=== PATIENT | male | born 1980 | race Caucasian/White ===

== ENCOUNTER → 2020-09-24 14:40 | Outpatient (CLI) | payer OTHER, SELFPAY ==
--- NOTE | 2020-09-24 14:57 | XR_ITS ---
PROCEDURE: XR KNEE RT 3V CLINICAL INDICATION: RT KNEE PAIN COMPARISON: No exams were available for comparison FINDINGS: No fracture or dislocation. No lytic or blastic change. There is normal mineralization. There are minimal osteoarthritic changes at the medial compartment and patellofemoral joint with small suprapatellar effusion. Other findings:None. IMPRESSION: Minimal osteoarthritis with small suprapatellar effusion Dictated by: Nehemias Morel MD 09/24/2020 16:02 Nehemias Morel MD in [place] 09/24/2020 16:02
== END ==
PROVIDERS: PCP Family Medicine; Visit Provider Family Medicine
DX: M25.561 Pain in right knee (principal)
CPT/HCPCS: 73562

== ENCOUNTER 2020-09-30 16:41 | Outpatient (RCR) | payer OTHER, SELFPAY | END 2020-09-30 16:45 | disposition home or self-care (01) | LOC: PT 16:41 | PROVIDERS: PCP Family Medicine; Visit Provider Family Medicine | DX: M25.561 Pain in right knee (principal) | CPT/HCPCS: 97163 ==

== ENCOUNTER 2022-09-04 08:00 | Outpatient (RCR) | payer OTHER, SELFPAY | END 2022-09-04 08:05 | disposition home or self-care (01) | LOC: OT 08:00 | PROVIDERS: Visit Provider Orthopaedic Surgery | DX: S46.011A Strain of muscle(s) and tendon(s) of the rotator cuff of right shoulder, initial encounter (principal); M75.101 Unspecified rotator cuff tear or rupture of right shoulder, not specified as traumatic | CPT/HCPCS: 97010; 97014; 97110; 97140; 97164; 97166; G0283 ==

== ENCOUNTER 2022-11-08 16:30 | Emergency (ER) | payer OTHER, SELFPAY ==
[2022-11-08 16:41] VITALS: BP 0/0; BP 151/98; PULSE 64; RESP 15; TEMP 36.5; O2SAT 99; BMI 36.7
--- NOTE | 2022-11-08 17:11 | HMH.EDGENADL ---
Discharge Plan Disposition Patient Disposition: Home, Self-Care Condition: Good Prescriptions Prescriptions: New cyclobenzaprine 10 mg tablet 10 mg PO TID Qty: 20 0RF Referrals Follow up/Referrals: Rosa Olivarez APRN [Primary Care Provider] - See instructions Activity Restrictions/Add. Instructions Additional Instructions/Restrictions: Try applying heat 20 minutes 4 times a day. Flexeril as prescribed, muscle relaxer. Continue ibuprofen. Call your orthopedic physician tomorrow to arrange further care Clinical Impressions Clinical Impression: Muscle spasm Instructions Patient Instructions: DI for Muscle Spasm Discharge ED Provider: [facility] General Adult HPI General Chief complaint: Extremity Injury, Upper Stated complaint: RT shoulder and neck Time Seen by Provider: 11/08/22 17:00 Mode of Arrival: Ambulatory Source of Information: Patient Limitations: No Limitations Description of Symptoms (Recalled from ER Triage Doc. by RN): Pt c/o right trapezious muscle knot for one week in setting of PT rehab w iso curls after rotator cuff repair 06/2022, NAD History of Present Illness HPI narrative: Patient states that he had rotator cuff surgery on his right shoulder in June. He has been undergoing physical therapy for rehab. For the past week he has had spasms in his right trapezius muscle. He says that the physical therapist was going to refer him for acupuncture. Physical therapist did massage today. He has tried ibuprofen and ice. He has previously been on muscle relaxers back after he had surgery. He says that they made him tired and drowsy, but did seem to help he is not sure what muscle relaxer he was on. He has had numbness of his right middle and ring finger ever since his surgery, which is unchanged. He does not have any radiation of the pain down his arm. He does have radiation of the pain up into the right side of his neck. No weakness. Related Data Previous Rx's Medication Instructions Recorded cyclobenzaprine 10 mg tablet 10 mg PO TID #20 tabs 11/08/22 Allergies Allergy/AdvReac Type Severity Reaction Status Date / Time No Known Allergies Allergy Verified 09/19/19 16:43 [facility] Disclaimer: The information contained in this section may have been updated after the patient was seen, as this information can be updated by other users. Social History Smoking Status: Never smoker alcohol intake: current current occupational status: employed Travel in the last 8 weeks: None ROS Obtained: Yes Systems reviewed as appropriate & no additional complaints except as documented Constitutional Constitutional: Denies weakness ENT Ears, Nose, Mouth, and Throat: Reports neck pain Musculoskeletal Musculoskeletal: Reports as per HPI, Reports neck pain and Reports numbness (Right ring and middle finger, since surgery) Neurologic Neurologic: Reports numbness (Right ring and middle finger, since surgery) and Denies weakness Physical Exam General General appearance: alert and in no apparent distress Neck Neck exam: Present full ROM; Absent tenderness Chest Chest inspection: Present normal inspection and symmetric chest wall rise Respiratory Respiratory exam: Absent respiratory distress Cardiovascular Cardiovascular exam: Present regular rate Extremities Exam Extremities exam: Present tenderness (Tenderness and spasm right trapezius muscle.) and other (Normal peripheral pulses. Normal warmth, capillary refill, muscular strength.) Neurological Exam Neurological exam: Present alert and oriented X3 Psychiatric Psychiatric exam: Present normal affect and normal mood Skin Skin exam: Present warm and dry Medical Decision Making Fred Inquiry Pt receiving controlled substance: No Vital Signs: 11/08/22 16:41 Temperature 97.7 F Temperature Source Oral Pulse Rate [Left Radial] 64 Respiratory Rate 15 Blood Pressure [Left Arm] 151/98 H Blood Pressure [Right A
[2022-11-08 18:00] VITALS: BP 161/101; PULSE 61; RESP 18; TEMP 36.5; O2SAT 100
== END 2022-11-08 18:01 | disposition home or self-care (01) ==
PROVIDERS: Emergency Provider Emergency Medicine; PCP Nurse Practitioner Family
DX: M62.838 Other muscle spasm (principal); M54.2 Cervicalgia; M25.511 Pain in right shoulder
CPT/HCPCS: 96360; 99284

== ENCOUNTER → 2023-03-02 11:41 | Outpatient (CLI) | payer OTHER, SELFPAY ==
[2023-03-02 18:28] LABS: Basophils % 0.5 % (0.1-2.0); Eosinophils # 0.1 K/mm3 (0.0-0.4); Eosinophils % 1.8 % (0.1-12.0); Hematocrit 44.6 % (42.0-52.0); Hemoglobin 14.6 g/dL (14.1-18.0); Lymphocytes # 2.2 K/mm3 (0.7-4.5); Mean Corpuscular HGB Conc 32.7 g/dL (31.8-35.4); Mean Corpuscular Hemoglobin 28.1 pg (27.0-31.2); Mean Corpuscular Volume 85.9 fl (80-94); Mean Platelet Volume 8.5 fl (7.4-10.4); Monocytes # 0.3 K/mm3 (0.1-1.0); Monocytes % 3.7 % (1.7-9.3); Neutrophils # 4.8 K/mm3 (1.8-7.8); Neutrophils % 64.9 % (37.0-80.0); Platelet Count 318 K/mm3 (142-424); Red Blood Count 5.19 M/mm3 (4.60-6.20); Red Cell Distribution Width 13.6 % (11.5-17.5); White Blood Count 7.4 K/mm3 (4.8-10.8)
[2023-03-02 18:57] LABS: Alanine Aminotransferase 28 U/L (12-78); Albumin Level 4.7 g/dl (3.5-5.0); Albumin/Globulin Ratio 1.7 (1.1-1.8); Alkaline Phosphatase 78 U/L (38-126); Anion Gap 14.4 mEq/L (5-15); Aspartate Amino Transferase 26 U/L (17-59); Bilirubin,Total 1.8 mg/dl (0.2-1.3); Blood Urea Nitrogen 20 mg/dl (9-20); Calcium 9.1 mg/dl (8.4-10.2); Carbon Dioxide 24 mmol/L (22.0-30.0); Chloride 106 mmol/L (98-107); Chol/HDL Ratio 4.7 (1-3.5); Cholesterol 230 mg/dl (140-200); Estimated Glomerular Filt Rate 81 ml/min (>60); GFR (African American) 98 ML/MIN (>60); Globulin 2.7 g/dL (1.3-3.2); Glucose 102 mg/dl (74-100); HDL Cholesterol 49 mg/dl (40-60); Potassium 4.4 mmoL/L (3.5-5.1); Sodium 140 mmol/L (136-145); Total Protein,Serum 7.4 g/dl (6.3-8.2); Triglycerides 163 mg/dl (30-150); VLDL Cholesterol 33 mg/dL (0-40)
[2023-03-02 19:00] LABS: Hemoglobin A1C 5.7 % (4.0-6.0)
[2023-03-02 19:08] LABS: Direct LDL Cholesterol 141.03 mg/dL (100-129)
[2023-03-02 19:11] LABS: 25-OH Vitamin D, Total 20.8 ng/mL (30-100)
[2023-03-02 19:26] LABS: Prostate Specific Ag Screen 1.4 ng/ml (0.0-4.0); Thyroid Stimulating Hormone 1.11 uIU/mL (0.465-4.68)
== END ==
LOC: LAB 03-03 08:38
PROVIDERS: PCP Student in an Organized Health Care Education/Training Program; Visit Provider Student in an Organized Health Care Education/Training Program
DX: M62.838 Other muscle spasm (principal); E55.9 Vitamin D deficiency, unspecified; Z13.1 Encounter for screening for diabetes mellitus; Z13.220 Encounter for screening for lipoid disorders; Z13.29 Encounter for screening for other suspected endocrine disorder; Z12.5 Encounter for screening for malignant neoplasm of prostate
CPT/HCPCS: 80053; 80061; 82306; 83036; 84443; 85025; G0103

== ENCOUNTER 2023-05-25 12:48 | Emergency (ER) | payer OTHER, SELFPAY ==
[2023-05-25 14:00] VITALS: BP 148/76; PULSE 68; RESP 18; TEMP 37; O2SAT 99; BMI 34.7
--- NOTE | 2023-05-25 14:28 | EXP.UTC ---
Discharge Plan Disposition Patient Disposition: Home, Self-Care Condition: Good Referrals Follow up/Referrals: Giulia Rios PA [Primary Care Provider] - See instructions Activity Restrictions/Add. Instructions Additional Instructions/Restrictions: Follow up with your Family Doctor next week as discussed They will be calling you to schedule your Abdominal Ultrasound Return if needed Straight to ER if any life threatening symptoms Clinical Impressions Clinical Impression: Abdominal discomfort Stand Alone Forms Stand Alone Forms: Work/School Release Discharge ED Provider: Monserrat Andino [facility] [place] HPI General Stated complaint: Large painful lump center of abd Mode of Arrival: Ambulatory Source of Information: Patient Limitations: No Limitations Time Seen by Provider: 05/25/23 14:28 Description of Symptoms (Recalled from Triage Doc. by RN): PATIENT C/O KNOT TO UPPER STOMACH AREA AND DECREASED APPETITE X 1 MONTH HEENT Symptoms (Recalled from RN notes): No Resp Symptoms (Recalled from RN notes): No Skin Symptoms (Recalled from RN notes): No MS Symptoms (Recalled from RN notes): No Functional Status (Recalled from RN notes): WNL History of Present Illness Provider Complaint: Patient states that he noticed about a month ago he noticed an area in his mid upper stomach down to his naval area that when he raises up from laying position raises up in his stomach, Denies any pain at this time but does states that he has pain at times with heavy lifting and packing heavy objects States that today he was just worried about it and wanted to get in and get it looked at Denies any pain at this time Related Data Allergies Allergy/AdvReac Type Severity Reaction Status Date / Time No Known Allergies Allergy Verified 03/30/23 09:28 Worker's Comp Is this a Worker's Comp case?: No [facility] Disclaimer: The information contained in this section may have been updated after the patient was seen, as this information can be updated by other users. Social History Smoking Status: Never smoker alcohol intake: current current occupational status: employed Travel in the last 8 weeks: None ROS Obtained: Yes All systems reviewed & no additional complaints except as documented and Yes Systems reviewed as appropriate & no additional complaints except as documented Constitutional Constitutional: Reports system reviewed and no additional complaints, except as documented, Reports as per HPI and Denies fever(s) ENT Ears, Nose, Mouth, and Throat: Reports system reviewed and no additional complaints, except as documented, Reports as per HPI and Denies dysphagia Cardiovascular Cardiovascular: Reports system reviewed and no additional complaints, except as documented and Reports as per HPI Respiratory Respiratory: Reports system reviewed and no additional complaints, except as documented and Reports as per HPI Gastrointestinal Gastrointestingal: Reports system reviewed and no additional complaints, except as documented and as per HPI; Denies abdominal pain, bloating, dyspepsia, dysphagia, heartburn, hematemesis, hematochezia, loose stools, melena, reflux or vomiting Musculoskeletal Musculoskeletal: Reports system reviewed and no additional complaints, except as documented and Reports as per HPI Physical Exam General General appearance: alert and in no apparent distress ENT ENT exam: Present mucous membranes moist Respiratory Respiratory exam: Present normal lung sounds bilaterally; Absent respiratory distress or wheezes Cardiovascular Cardiovascular exam: Present regular rate, normal rhythm and normal heart sounds Abdominal Exam Abdominal exam: Present soft and normal bowel sounds; Absent distention or tenderness Comment: no hard areas palpated denies pain at this time Neurological Exam Neurological exam: Present alert, oriented X3 and normal gait Medical Decision Making Fred Inquiry Pt rec
[2023-05-25 14:49] VITALS: BP 148/76; PULSE 68; RESP 18; TEMP 37; O2SAT 99
== END 2023-05-25 14:56 | disposition home or self-care (01) ==
PROVIDERS: Emergency Provider Nurse Practitioner; PCP Student in an Organized Health Care Education/Training Program
DX: R10.33 Periumbilical pain (principal)
CPT/HCPCS: 99204; 99212; G0463

== ENCOUNTER → 2023-05-28 23:27 | Outpatient (CLI) | payer OTHER, SELFPAY ==
[2023-05-28 19:33] LABS: Basophils # 0.1 K/mm3 (0-0.2); Basophils % 0.7 % (0.1-2.0); Eosinophils # 0.2 K/mm3 (0.0-0.4); Eosinophils % 2.4 % (0.1-12.0); Hematocrit 44.3 % (42.0-52.0); Hemoglobin 14.9 g/dL (14.1-18.0); Lymphocytes # 2.5 K/mm3 (0.7-4.5); Lymphocytes % 32.7 % (10-50); Mean Corpuscular HGB Conc 33.6 g/dL (31.8-35.4); Mean Corpuscular Hemoglobin 28.8 pg (27.0-31.2); Mean Corpuscular Volume 85.6 fl (80-94); Mean Platelet Volume 7.5 fl (7.4-10.4); Monocytes # 0.4 K/mm3 (0.1-1.0); Monocytes % 4.9 % (1.7-9.3); Neutrophils # 4.5 K/mm3 (1.8-7.8); Neutrophils % 59.3 % (37.0-80.0); Platelet Count 304 K/mm3 (142-424); Red Blood Count 5.17 M/mm3 (4.60-6.20); Red Cell Distribution Width 13.4 % (11.5-17.5); White Blood Count 7.5 K/mm3 (4.8-10.8)
[2023-05-28 19:38] LABS: Alanine Aminotransferase 34 U/L (12-78); Albumin Level 4.5 g/dl (3.5-5.0); Albumin/Globulin Ratio 1.6 (1.1-1.8); Alkaline Phosphatase 61 U/L (38-126); Amylase 61 U/L (30-110); Anion Gap 14.1 mEq/L (5-15); Aspartate Amino Transferase 31 U/L (17-59); Bilirubin,Total 1.4 mg/dl (0.2-1.3); Blood Urea Nitrogen 13 mg/dl (9-20); Calcium 9.6 mg/dl (8.4-10.2); Carbon Dioxide 28 mmol/L (22.0-30.0); Chloride 102 mmol/L (98-107); Cholesterol 216 mg/dl (140-200); Estimated Glomerular Filt Rate 92 ml/min (>60); GFR (African American) 111 ML/MIN (>60); Globulin 2.9 g/dL (1.3-3.2); Glucose 107 mg/dl (74-100); HDL Cholesterol 36 mg/dl (40-60); Lipase 78 U/L (23-300); Potassium 4.1 mmoL/L (3.5-5.1); Sodium 140 mmol/L (136-145); Total Protein,Serum 7.4 g/dl (6.3-8.2)
[2023-05-28 19:39] LABS: Triglycerides 466 mg/dl (30-150)
[2023-05-28 19:51] LABS: Direct LDL Cholesterol 118.72 mg/dL (100-129)
[2023-05-28 20:01] LABS: Hemoglobin A1C 5.6 % (4.0-6.0)
== END ==
LOC: LAB.DROPOF 23:27
PROVIDERS: PCP Student in an Organized Health Care Education/Training Program; Visit Provider Student in an Organized Health Care Education/Training Program
DX: R10.9 Unspecified abdominal pain (principal); E55.9 Vitamin D deficiency, unspecified; E66.9 Obesity, unspecified; Z68.36 Body mass index [BMI] 36.0-36.9, adult
CPT/HCPCS: 80053; 80061; 82150; 82306; 83036; 83690; 84443; 85025

== ENCOUNTER → 2023-06-22 07:08 | Outpatient (CLI) | payer OTHER, SELFPAY ==
--- NOTE | 2023-06-22 07:15 | US_ITS ---
FINAL REPORT CLINICAL HISTORY: abd mass, concern for hernia FINDINGS: Sonographic images of the abdomen were obtained. There is fatty infiltration of the liver. The gallbladder has an unremarkable appearance without evidence of gallstones. There is no evidence of biliary ductal dilatation. The common hepatic duct measures 3 mm, which is within normal limits. Limited images of the pancreas are unremarkable. The spleen size is normal. The right kidney measures 9.3 cm in length. The left kidney measures 10.2 cm in length. There is normal renal echogenicity. There is no evidence of hydronephrosis. The aorta has an unremarkable appearance. Limited images of the inferior vena cava are unremarkable. No mass or hernia is identified. IMPRESSION: No mass or hernia identified. If indicated, CT would be more sensitive. Reviewed, Interpreted and Dictated by Andrzej Castro III, MD Transcribed by Gloria Norris Authenticated and [facility]
== END ==
LOC: RAD 07:11
PROVIDERS: PCP Student in an Organized Health Care Education/Training Program; Visit Provider Student in an Organized Health Care Education/Training Program
DX: R19.00 Intra-abdominal and pelvic swelling, mass and lump, unspecified site (principal)
CPT/HCPCS: 76700

== ENCOUNTER 2023-07-30 16:49 | Emergency (ER) | payer OTHER, SELFPAY ==
[2023-07-30 19:15] VITALS: BP 139/86; PULSE 78; RESP 18; TEMP 36.6; O2SAT 98; BMI 36.8
--- NOTE | 2023-07-30 19:33 | EXP.UTC ---
Discharge Plan Disposition Patient Disposition: Home, Self-Care Condition: Good Prescriptions Prescriptions: New fluticasone propionate [Flonase Allergy Relief] 50 mcg/actuation spray,suspension 1 - 2 spray intranasal DAILY Qty: 16 0RF Rx Instructions: administer into each nostril daily amoxicillin 875 mg tablet 875 mg PO Q12H Qty: 20 0RF No Action omeprazole 20 mg capsule,delayed release(DR/EC) 20 mg PO DAILY Qty: 30 2RF Referrals Follow up/Referrals: Giulia Rios PA [Primary Care Provider] - See instructions Activity Restrictions/Add. Instructions Additional Instructions/Restrictions: Go home lay down and sleep off remainder of Migraine headache Start antibiotics and take as directed Follow up with your Family Doctor if no improvement Straight to ER if any life threatening symptoms Clinical Impressions Clinical Impression: Migraine Qualifiers: Migraine type: unspecified Status migrainosus presence: without status migrainosus Intractability: not intractable Qualified Code(s): G43.909 - Migraine, unspecified, not intractable, without status migrainosus Otitis media Qualifiers: Otitis media type: unspecified Laterality: right Qualified Code(s): H66.91 - Otitis media, unspecified, right ear Stand Alone Forms Stand Alone Forms: Work/School Release Instructions Patient Instructions: Middle Ear Infection, DI for Migraine Discharge ED Provider: Monserrat Andino [facility] General Stated complaint: migraine dizziness nausea Mode of Arrival: Ambulatory Source of Information: Patient Limitations: No Limitations Time Seen by Provider: 07/30/23 19:33 Description of Symptoms (Recalled from Triage Doc. by RN): migraine, and sinus pressure behind both eyes HEENT Symptoms (Recalled from RN notes): Yes Resp Symptoms (Recalled from RN notes): No Skin Symptoms (Recalled from RN notes): No MS Symptoms (Recalled from RN notes): No Functional Status (Recalled from RN notes): n/a History of Present Illness Provider Complaint: Patient states that he has a hx of migraines States that he has been having a migraine all day and it is like his other migraines he has had in the past states that he has also been having some pain in his ears and pressure wants to get them looked at too Denies vision changes Related Data Previous Rx's Medication Instructions Recorded omeprazole 20 mg capsule,delayed 20 mg PO DAILY #30 caps 06/05/23 release amoxicillin 875 mg tablet 875 mg PO Q12H #20 tabs 07/30/23 fluticasone propionate 50 1 - 2 spray intranasal DAILY #16 07/30/23 mcg/actuation nasal grams spray,suspension (Flonase Allergy Relief) Allergies Allergy/AdvReac Type Severity Reaction Status Date / Time No Known Allergies Allergy Verified 07/30/23 19:27 Worker's Comp Is this a Worker's Comp case?: No [facility] Disclaimer: The information contained in this section may have been updated after the patient was seen, as this information can be updated by other users. Medical History Abdominal discomfort Obesity Vitamin D deficiency Surgical History No significant past surgical history Family History Other No significant family history Social History Smoking Status: Never smoker alcohol intake: current current occupational status: employed Travel in the last 8 weeks: None ROS Obtained: Yes All systems reviewed & no additional complaints except as documented and Yes Systems reviewed as appropriate & no additional complaints except as documented Constitutional Constitutional: Reports system reviewed and no additional complaints, except as documented, Reports as per HPI and Reports headache(s) Eyes Eyes: Denies loss of vision ENT Ears, Nose, Mouth, and Throat: Reports system re
[2023-07-30 20:30] VITALS: BP 139/86; PULSE 78; RESP 19; TEMP 36.6; O2SAT 98
== END 2023-07-30 20:41 | disposition home or self-care (01) ==
PROVIDERS: Emergency Provider Nurse Practitioner; PCP Student in an Organized Health Care Education/Training Program
DX: G43.909 Migraine, unspecified, not intractable, without status migrainosus (principal); R42 Dizziness and giddiness; R11.0 Nausea; H92.03 Otalgia, bilateral
CPT/HCPCS: 96372; 99212; 99214; G0463

== ENCOUNTER 2023-08-23 11:46 | Emergency (ER) | payer OTHER, SELFPAY ==
[2023-08-23 12:15] VITALS: BP 134/90; PULSE 81; RESP 19; TEMP 36.8; O2SAT 98; BMI 35.2
--- NOTE | 2023-08-23 12:49 | ED_ITS ---
Discharge Plan Disposition Patient Disposition: Home, Self-Care Condition: Good Prescriptions Prescriptions: No Action omeprazole 20 mg capsule,delayed release(DR/EC) 20 mg PO DAILY Qty: 30 2RF fluticasone propionate [Flonase Allergy Relief] 50 mcg/actuation spray,suspension 1 - 2 spray intranasal DAILY Qty: 16 0RF Rx Instructions: administer into each nostril daily amoxicillin 875 mg tablet 875 mg PO Q12H Qty: 20 0RF Referrals Follow up/Referrals: Ni Naylor MD [Referring] - See instructions Giulia Rios PA [Primary Care Provider] - See instructions Activity Restrictions/Add. Instructions Additional Instructions/Restrictions: Follow up with your Family Doctor for further evaluation and treatment if needed Follow up with Dermatology or hand center if needed Straight to ER if any life threatening symptoms Allow nail to grow underneath and the top nail should fall off Follow up with your Family Doctor if it doesnt Clinical Impressions Clinical Impression: Nail abnormality Instructions Patient Instructions: DI for Subungual Hematoma Discharge ED Provider: Monserrat Andino [facility] General Stated complaint: AO 06/27, left hand thumb bruising Mode of Arrival: Ambulatory Source of Information: Patient Limitations: No Limitations Time Seen by Provider: 08/23/23 12:49 Description of Symptoms (Recalled from Triage Doc. by RN): PATIENT C/O LEFT THUMB INJURY AFTER HITTING IT WITH A HAMMER 2 MONTHS AGO HEENT Symptoms (Recalled from RN notes): No Resp Symptoms (Recalled from RN notes): No Skin Symptoms (Recalled from RN notes): No MS Symptoms (Recalled from RN notes): Yes Functional Status (Recalled from RN notes): WNL History of Present Illness Provider Complaint: Patient states that he smashed his left thumbnail with a hammer about 2-3 months ago States that he has be letting it grow out but he is starting to getting it caught on stuff and afraid he may rip it off came in today wanting to get it removed if he can Related Data Previous Rx's Medication Instructions Recorded omeprazole 20 mg capsule,delayed 20 mg PO DAILY #30 caps 06/05/23 release amoxicillin 875 mg tablet 875 mg PO Q12H #20 tabs 07/30/23 fluticasone propionate 50 1 - 2 spray intranasal DAILY #16 07/30/23 mcg/actuation nasal grams spray,suspension (Flonase Allergy Relief) Allergies Allergy/AdvReac Type Severity Reaction Status Date / Time No Known Allergies Allergy Verified 07/30/23 19:27 Worker's Comp Is this a Worker's Comp case?: No [facility] Disclaimer: The information contained in this section may have been updated after the patient was seen, as this information can be updated by other users. Medical History Abdominal discomfort Obesity Vitamin D deficiency Surgical History No significant past surgical history Family History Other No significant family history Social History Smoking Status: Never smoker alcohol intake: current current occupational status: employed Travel in the last 8 weeks: None ROS Obtained: Yes All systems reviewed & no additional complaints except as documented and Yes Systems reviewed as appropriate & no additional complaints except as documented Constitutional Constitutional: Reports system reviewed and no additional complaints, except as documented and Reports as per HPI ENT Ears, Nose, Mouth, and Throat: Reports system reviewed and no additional complaints, except as documented and Reports as per HPI Cardiovascular Cardiovascular: Reports system reviewed and no additional complaints, except as documented and Reports as per HPI Respiratory Respiratory: Reports system reviewed and no additional complaints, except as documented and Reports as per HPI Gastrointestinal Gastrointestingal: Reports system reviewed and no additional complaints, except as documented and as per HPI Musculoskeletal Musculoskeletal: Reports system reviewed and no additional complaints, except as documented and Reports as per HPI Physical Exam General General appearance: alert and in no apparent distress ENT ENT exam: Present mucous membranes moist Respiratory Respiratory exam: Present normal lung sounds bilaterally; Absent respiratory distress or wheezes Cardiovascular Cardiovascular exam: Present regular rate, normal rhythm and normal heart sounds Expanded Upper Extremity Exam Left: Hand exam: Present other (nail on left thumb discolored and new nail appears to be growing underneath no sharp corners noted no redness no signs of infection) Neurological Exam Neurological exam: Present alert, oriented X3 and normal gait Medical Decision Making Fred Inquiry Pt receiving controlled substance: No Fred was queried for this patient: No Vital Signs: 08/23/23 12:15 Temperature 98.3 F Temperature Source Oral Pulse Rate [Left Brachial] 81 Respiratory Rate 19 Blood Pressure [Left Arm] 134/90 Blood Pressure Mean [Left Arm] 104 Blood Pressure Source [Left Arm] Automatic Cuff Blood Pressure Position [Left Arm] Sitting 02 Sat by Pulse Oximetry 98 Oxygen Delivery Method Room Air
[2023-08-23 13:04] VITALS: BP 134/90; PULSE 81; RESP 19; TEMP 36.8; O2SAT 98
== END 2023-08-23 13:07 | disposition home or self-care (01) ==
PROVIDERS: Emergency Provider Nurse Practitioner; PCP Student in an Organized Health Care Education/Training Program
DX: L60.9 Nail disorder, unspecified (principal)
CPT/HCPCS: 99212; 99213; G0463

== ENCOUNTER 2023-09-19 10:44 | Outpatient (CLI) | payer OTHER, SELFPAY ==
--- NOTE | 2023-09-19 10:48 | XR_ITS ---
FINAL REPORT CLINICAL HISTORY: left foot and ankle pain COMPARISON: None FINDINGS: LEFT FOOT Three views demonstrate orthopedic screws securing the medial malleolus. There is a sideplate and screws securing a healed fracture deformity of the distal fibula. There are associated changes of osteoarthritis of the ankle mortise. There is no acute fracture or dislocation. The soft tissues are unremarkable. IMPRESSION: Postoperative changes as above. Changes of osteoarthritis without acute bony abnormality. Reviewed, Interpreted and Dictated by Duane Saavedra MD Transcribed by Jaida Uriarte Authenticated and [facility]
--- NOTE | 2023-09-19 10:48 | XR_ITS ---
FINAL REPORT CLINICAL HISTORY: left foot and ankle pain COMPARISON: None FINDINGS: LEFT ANKLE Three views demonstrate orthopedic screws securing the medial malleolus. There is a sideplate and screws securing a healed fracture deformity of the distal fibula. There are associated changes of osteoarthritis of the ankle mortise. There is no acute fracture or dislocation. The soft tissues are unremarkable. IMPRESSION: Postoperative changes as above. Changes of osteoarthritis without acute bony abnormality. Reviewed, Interpreted and Dictated by Duane Saavedra MD Transcribed by Jaida Uriarte Authenticated and [facility]
== END 2023-09-19 23:59 ==
LOC: RAD 10:45
PROVIDERS: PCP Student in an Organized Health Care Education/Training Program; Visit Provider Nurse Practitioner Family
DX: M25.572 Pain in left ankle and joints of left foot (principal); M79.672 Pain in left foot
CPT/HCPCS: 73610; 73630

== ENCOUNTER 2023-11-09 15:00 | Outpatient (CLI) | payer OTHER, SELFPAY ==
--- NOTE | 2023-11-09 15:05 | XR_ITS ---
FINAL REPORT CLINICAL HISTORY: right knee pain FINDINGS: Right knee Three views were obtained. There is no acute fracture or dislocation. The joint spaces appear normal. No joint effusion is identified. No soft tissue abnormality is identified. IMPRESSION: No acute process. Reviewed, Interpreted and Dictated by Andrzej Castro III, MD Transcribed by Gloria Norris Authenticated and [facility]
== END 2023-11-09 23:59 ==
LOC: RAD 15:01
PROVIDERS: PCP Student in an Organized Health Care Education/Training Program; Visit Provider Student in an Organized Health Care Education/Training Program
DX: M25.561 Pain in right knee (principal)
CPT/HCPCS: 73562

== ENCOUNTER 2024-01-29 14:02 | Outpatient (CLI) | payer OTHER, SELFPAY ==
[2024-01-29 21:35] LABS: Alanine Aminotransferase 44 U/L (12-78); Albumin Level 4.4 g/dl (3.5-5.0); Albumin/Globulin Ratio 1.5 (1.1-1.8); Alkaline Phosphatase 65 U/L (38-126); Anion Gap 16.2 mEq/L (5-15); Aspartate Amino Transferase 35 U/L (17-59); Bilirubin,Total 1.3 mg/dl (0.2-1.3); Blood Urea Nitrogen 16 mg/dl (9-20); Calcium 9.6 mg/dl (8.4-10.2); Carbon Dioxide 24 mmol/L (22.0-30.0); Chloride 103 mmol/L (98-107); Chol/HDL Ratio 5.1 (1-3.5); Cholesterol 244 mg/dl (140-200); Estimated Glomerular Filt Rate 91 ml/min (>60); GFR (African American) 110 ML/MIN (>60); Globulin 2.9 g/dL (1.3-3.2); Glucose 117 mg/dl (74-100); HDL Cholesterol 48 mg/dl (40-60); Potassium 4.2 mmoL/L (3.5-5.1); Sodium 139 mmol/L (136-145); Total Protein,Serum 7.3 g/dl (6.3-8.2); Triglycerides 127 mg/dl (30-150); VLDL Cholesterol 25 mg/dL (0-40)
[2024-01-29 21:37] LABS: Basophils # 0.1 K/mm3 (0-0.2); Basophils % 0.9 % (0.1-2.0); Eosinophils # 0.3 K/mm3 (0.0-0.4); Eosinophils % 3.7 % (0.1-12.0); Hematocrit 45.7 % (42.0-52.0); Hemoglobin 15.2 g/dL (14.1-18.0); Lymphocytes # 2.4 K/mm3 (0.7-4.5); Lymphocytes % 30.2 % (10-50); Mean Corpuscular HGB Conc 33.3 g/dL (31.8-35.4); Mean Corpuscular Hemoglobin 29.8 pg (27.0-31.2); Mean Corpuscular Volume 89.4 fl (80-94); Mean Platelet Volume 8.6 fl (7.4-10.4); Monocytes # 0.4 K/mm3 (0.1-1.0); Monocytes % 4.9 % (1.7-9.3); Neutrophils # 4.7 K/mm3 (1.8-7.8); Neutrophils % 60.2 % (37.0-80.0); Platelet Count 281 K/mm3 (142-424); Red Blood Count 5.11 M/mm3 (4.60-6.20); Red Cell Distribution Width 13.9 % (11.5-17.5); White Blood Count 7.8 K/mm3 (4.8-10.8)
[2024-01-29 21:46] LABS: Direct LDL Cholesterol 157.36 mg/dL (100-129)
[2024-01-29 21:51] LABS: 25-OH Vitamin D, Total 23.9 ng/mL (30-100)
[2024-01-29 22:04] LABS: Thyroid Stimulating Hormone 1.77 uIU/mL (0.465-4.68)
[2024-01-29 22:15] LABS: Hemoglobin A1C 5.8 % (4.0-6.0)
== END 2024-01-29 23:59 | disposition home or self-care (01) ==
LOC: LAB.DROPOF 01-30 14:02
PROVIDERS: PCP Student in an Organized Health Care Education/Training Program; Visit Provider Student in an Organized Health Care Education/Training Program
DX: E55.9 Vitamin D deficiency, unspecified (principal); E78.5 Hyperlipidemia, unspecified; E66.09 Other obesity due to excess calories; Z68.34 Body mass index [BMI] 34.0-34.9, adult; Z13.29 Encounter for screening for other suspected endocrine disorder
CPT/HCPCS: 80050; 80053; 80061; 82306; 83036; 84443; 85025

== ENCOUNTER 2024-02-06 11:13 | Emergency (ER) | payer OTHER, SELFPAY ==
[2024-02-06 11:14] VITALS: BP 143/96; PULSE 65; RESP 13; TEMP 36.8; O2SAT 95; BMI 35.4
--- NOTE | 2024-02-06 11:50 | ED_ITS ---
Discharge Plan Disposition Patient Disposition: Home, Self-Care Prescriptions Prescriptions: New meclizine 25 mg tablet 25 mg PO TID PRN (Reason: dizziness) Qty: 20 0RF No Action omeprazole 20 mg capsule,delayed release(DR/EC) 20 mg PO DAILY Qty: 30 2RF tizanidine 4 mg capsule 4 mg PO HS PRN (Reason: muscle spasticity) Qty: 20 0RF lidocaine 5 % adhesive patch,medicated 1 patch topical DAILY Qty: 15 0RF Rx Instructions: leave on most painful area for up to 12 hrs acetaminophen [Tylenol Arthritis Pain] 650 mg tablet extended release 650 mg PO Q12H diclofenac sodium [Voltaren Arthritis Pain] 1 % gel 2 g topical QID Qty: 100 3RF Rx Instructions: apply to single elbow, wrist or hand; for hand includes palm/fingers/back of hand meclizine 12.5 mg tablet 12.5 mg PO TID PRN (Reason: dizziness) Qty: 30 1RF clotrimazole 1 % cream 1 applic topical BID 14 Days Qty: 30 1RF diclofenac sodium 75 mg tablet,delayed release (DR/EC) 75 mg PO BID PRN (Reason: pain) Qty: 30 1RF cholecalciferol (vitamin D3) 50 mcg (2,000 unit) capsule 50 mcg PO DAILY Qty: 90 0RF simvastatin 10 mg tablet 10 mg PO DAILY Qty: 90 3RF fluticasone propionate [Flonase Allergy Relief] 50 mcg/actuation spray,suspension 1 - 2 spray intranasal DAILY Qty: 16 0RF Rx Instructions: administer into each nostril daily Referrals Follow up/Referrals: Giulia Rios PA [Primary Care Provider] - See instructions Activity Restrictions/Add. Instructions Additional Instructions/Restrictions: Your symptoms are not consistent with a central cause of your vertigo. All your symptoms are consistent with benign positional vertigo and you had significant improvement with the Juan A maneuver. You may continue to try this at home if your symptoms worsen. Please return with any significant worsening symptoms that you are concerned about and if you have persistent symptoms you may follow- up with ear nose and throat for vestibular rehab. Clinical Impressions Clinical Impression: BPV (benign positional vertigo) Discharge ED Provider: Leonidas Herbert General Adult [facility] General Chief complaint: Dizziness Stated complaint: light headed Time Seen by Provider: 02/06/24 11:34 Mode of Arrival: Ambulatory Source of Information: Patient Limitations: No Limitations Description of Symptoms (Recalled from ER Triage Doc. by RN): pt presents to ED with c/o dizziness. pt has seen pcp recently for smilar issue, pt was prescribed meclizine but pt reports medication is not helping. History of Present Illness HPI narrative: Patient is a 43-year-old male presents today with vertiginous symptoms. Previously healthy no past medical problems states that his symptoms began this morning. Worsening with movement improved with rest. No definitive change in coordination or vision. Denies any numbness weakness or tingling in his arms or legs. No headache. No recent ear infection. Related Data Home Medications Medication Instructions Recorded Confirmed acetaminophen 650 mg 650 mg PO Q12H 09/19/23 01/29/24 tablet,extended release (Tylenol Arthritis Pain) Previous Rx's Medication Instructions Recorded omeprazole 20 mg capsule,delayed 20 mg PO DAILY #30 caps 06/05/23 release fluticasone propionate 50 1 - 2 spray intranasal DAILY #16 07/30/23 mcg/actuation nasal grams spray,suspension (Flonase Allergy Relief) diclofenac sodium 1 % topical gel 2 g topical QID #100 grams 10/04/23 (Voltaren Arthritis Pain) lidocaine 5 % topical patch 1 patch topical DAILY #15 ea 12/17/23 tizanidine 4 mg capsule 4 mg PO HS PRN muscle spasticity 12/17/23 #20 caps clotrimazole 1 % topical cream 1 applic topical BID 2 weeks #30 01/29/24 grams diclofenac sodium 75 mg 75 mg PO BID PRN pain #30 tabs 01/29/24 tablet,delayed release meclizine 12.5 mg tablet 12.5 mg PO TID PRN dizziness #30 01/29/24 tabs cholecalciferol (vitamin D3) 50 50 mcg PO DAILY #90 caps 01/31/24 mcg (2,000 unit) capsule simvastatin 10 mg tablet 10 mg PO DAILY #90 tabs 01/31/24 meclizine 25 mg tablet 25 mg PO TID PRN dizziness #20 tabs 02/06/24 Allergies Allergy/AdvReac Type Severity Reaction Status Date / Time No Known Allergies Allergy Verified 01/29/24 09:34 [facility] Disclaimer: The information contained in this section may have been updated after the patient was seen, as this information can be updated by other users. Medical History Ankle fracture, left surgery in 2007 Otitis media Abdominal discomfort Obesity Vitamin D deficiency Surgical History No significant past surgical history Family History Other No significant family history Social History Smoking Status: Never smoker alcohol intake: current alcohol intake frequency: a few times a week current occupational status: employed Travel in the last 8 weeks: None ROS Obtained: Yes All systems reviewed & no additional complaints except as documented Physical Exam General General appearance: alert and in no apparent distress Respiratory Respiratory exam: Present normal lung sounds bilaterally; Absent respiratory distress Cardiovascular Cardiovascular exam: Present regular rate and normal rhythm Neurological Exam Neurological exam: Present alert, oriented X3, CN II-XII intact, normal gait and other (Abnormal head impulse, otherwise no nystagmus or abnormal test of skew, finger-nose [id number] rapid alternating movements and gait all normal); Absent motor sensory deficit Medical Decision Making Fred Inquiry Pt receiving controlled substance: No Vital Signs: 02/06/24 11:14 Temperature 98.3 F Temperature Source Oral Pulse Rate [Left Radial] 65 Respiratory Rate 13 Blood Pressure [Right Arm] 143/96 H Blood Pressure Mean [Right Arm] 111 02 Sat by Pulse Oximetry 95 Oxygen Delivery Method Room Air Medical Decision Narrative: 43-year-old with a normal neurologic exam aside from a positive head impulse test and symptoms that are consistent with positional vertigo. The Juan A maneuver was performed with significant improvement in his symptoms almost complete resolution all this is consistent with benign positional vertigo. I am not concerned about a central cause at this point. Also with the intermittent nature of his symptoms is unlikely to be labyrinthitis or vestibular neuritis. Patient was prescribed meclizine and discharged in stable condition. Critical Care Critical Care Time Critical Care Time: No
[2024-02-06 11:54] VITALS: BP 128/84; PULSE 62; RESP 13; TEMP 36.7
== END 2024-02-06 11:54 | disposition home or self-care (01) ==
PROVIDERS: Emergency Provider Student in an Organized Health Care Education/Training Program; PCP Student in an Organized Health Care Education/Training Program
DX: H81.10 Benign paroxysmal vertigo, unspecified ear (principal)
CPT/HCPCS: 99283

== ENCOUNTER 2024-07-17 12:36 | Emergency (ER) | payer OTHER, SELFPAY ==
--- NOTE | 2024-07-17 12:49 | ED_ITS ---
Discharge Plan Disposition Patient Disposition: Home, Self-Care Condition: Good Prescriptions Prescriptions: New prednisone 20 mg tablet 20 mg PO BID 3 Days Qty: 6 0RF amoxicillin 875 mg tablet 875 mg PO Q12H Qty: 20 0RF benzonatate 100 mg capsule 100 mg PO TIDP PRN (Reason: Cough) Qty: 30 0RF No Action diclofenac sodium 75 mg tablet,delayed release (DR/EC) 75 mg PO DAILY Referrals Follow up/Referrals: Giulia Rios PA [Primary Care Provider] - See instructions Activity Restrictions/Add. Instructions Additional Instructions/Restrictions: Drink plenty of fluids. Take tylenol or ibuprofen for pain or fever. Take the medications as directed. Follow up with your regular doctor. GO TO THE ER FOR ANY WORSENING SYMPTOMS Clinical Impressions Clinical Impression: Strep throat Stand Alone Forms Stand Alone Forms: Work/School Release Instructions Patient Instructions: DI for Strep Throat Print Language Print Language: Vincentian Discharge ED Provider: Pardeep Menjivar [facility] General Stated complaint: sore throat Time Seen by Provider: 07/17/24 12:49 Related Data Home Medications ?Medication ?Instructions ?Recorded ?Confirmed diclofenac sodium 75 mg 75 mg PO DAILY 07/17/24 07/17/24 tablet,delayed release Previous Rx's ?Medication ?Instructions ?Recorded amoxicillin 875 mg tablet 875 mg PO Q12H #20 tabs 07/17/24 benzonatate 100 mg capsule 100 mg PO TIDP PRN Cough #30 caps 07/17/24 prednisone 20 mg tablet 20 mg PO BID 3 days #6 tabs 07/17/24 Allergies Allergy/AdvReac Type Severity Reaction Status Date / Time No Known Allergies Allergy Verified 01/29/24 09:34 [facility] Disclaimer: The information contained in this section may have been updated after the patient was seen, as this information can be updated by other users. Medical History Ankle fracture, left surgery in 2007 Otitis media Abdominal discomfort Obesity Vitamin D deficiency Surgical History No significant past surgical history Family History Other No significant family history Social History Smoking Status: Never smoker alcohol intake: current alcohol intake frequency: a few times a week current occupational status: employed ROS Obtained: Yes All systems reviewed & no additional complaints except as documented Constitutional Constitutional: Reports chills and Reports fever(s) Eyes Eyes: Denies eye discharge ENT Ears, Nose, Mouth, and Throat: Reports as per HPI Cardiovascular Cardiovascular: Denies chest pain Respiratory Respiratory: Denies chest congestion and Reports cough Gastrointestinal Gastrointestingal: Reports nausea; Denies abdominal pain, constipation, cramping, diarrhea or vomiting Musculoskeletal Musculoskeletal: Denies arthralgias Integumentary/Breasts Skin/Breast: Denies rash Neurologic Neurologic: Denies paresthesias Physical Exam General General appearance: alert and in no apparent distress Head Head exam: atraumatic, normocephalic and normal inspection Eye Eye exam: Present normal appearance, PERRL and EOMI ENT ENT exam: Present mucous membranes moist and normal external ear exam Expanded ENT Exam TM/Canal exam: Bilateral TM: erythema and bulging Nose exam: Absent sinus tenderness Mouth exam: Present normal external inspection; Absent drooling Teeth exam: Present normal inspection Throat exam: Present tonsillar erythema, tonsillomegaly and tonsillar exudate Neck Neck exam: Present normal inspection, full ROM and trachea midline; Absent tenderness, meningismus or lymphadenopathy Chest Chest inspection: Present normal inspection and symmetric chest wall rise; Absent tenderness Respiratory Respiratory exam: Present normal lung sounds bilaterally; Absent respiratory distress, wheezes, stridor or accessory muscle use Cardiovascular Cardiovascular exam: Present regular rate and normal rhythm; Absent systolic murmur or diastolic murmur Abdominal Exam Abdominal exam: Present soft and normal bowel sounds; Absent distention, tenderness, guarding, rebound or rigidity Extremities Exam Extremities exam: Present normal inspection and normal capillary refill; Absent calf tenderness Back Exam Back exam: Present normal inspection and full ROM; Absent tenderness, CVA tenderness (R) or CVA tenderness (L) Neurological Exam Neurological exam: Present alert, oriented X3 and CN II-XII intact Psychiatric Psychiatric exam: Present normal affect and normal mood Skin Skin exam: Present warm, dry, intact and normal color Medical Decision Making Medical Records Medical records reviewed: No I reviewed the patient's medical records. Screening: Per USPSTF and CDC recommendations, given the prevalence of disease in our region, it is our hospital?s policy to screen for HIV and viral Hepatitis for all patients aged 18 and over and those with ongoing risk factors. Fred Inquiry Pt receiving controlled substance: No Lab Data Lab results reviewed: Yes I reviewed the patient's lab results.
[2024-07-17 13:20] VITALS: BP 122/81; PULSE 63; RESP 18; TEMP 36.2; O2SAT 96; BMI 37.1
[2024-07-17 13:36] LABS: UTC Strep Screen (Rapid) Positive (Negative)
[2024-07-17 13:58] VITALS: BP 122/81; PULSE 63; RESP 18; TEMP 36.2; O2SAT 96
== END 2024-07-17 14:04 | disposition home or self-care (01) ==
PROVIDERS: Emergency Provider Nurse Practitioner Family; PCP Student in an Organized Health Care Education/Training Program
DX: J02.0 Streptococcal pharyngitis (principal)
CPT/HCPCS: 87880; 99213; G0381

== ENCOUNTER 2024-10-04 14:16 | Emergency (ER) | payer OTHER, SELFPAY ==
[2024-10-04 14:22] VITALS: BP 160/87; PULSE 77; RESP 16; TEMP 36.9; O2SAT 97; BMI 36.9
[2024-10-04 14:38] LABS: Coronavirus 19, PCR Not Detected (NotDetected); Influenza B, PCR Not Detected (NotDetected)
--- NOTE | 2024-10-04 14:54 | ED_ITS ---
<Statement entered by Nick Zimmer MD - 10/05/24 00:35> I was consulted by the KYLIE, and we discussed the complexity of problems being addressed. I approved the treatment and management plan for this patient's care in the emergency department, thus performing a substantial portion of the medical decision making. Nick Zimmer MD Discharge Plan Disposition Patient Disposition: Home, Self-Care Condition: Good Prescriptions Prescriptions: New promethazine-DM 6.25-15 mg/5 mL syrup 5 ml PO Q6H 7 Days Qty: 140 0RF albuterol sulfate 90 mcg/actuation HFA aerosol inhaler 2 inh inhalation Q8H PRN (Reason: shortness of breath or wheezing) Qty: 8.5 0RF ondansetron HCl 4 mg tablet 4 mg PO Q8H PRN (Reason: nausea and vomiting) 6 Days Qty: 30 0RF No Action diclofenac sodium 75 mg tablet,delayed release (DR/EC) 75 mg PO DAILY Qty: 30 0RF Referrals Follow up/Referrals: Provider,MD Lizandro [Primary Care Provider] - See instructions Activity Restrictions/Add. Instructions Additional Instructions/Restrictions: Increase fluids and rest. Take Tylenol and ibuprofen for aches or fever. Take cough syrup as directed. If symptoms do not improve please see primary care physician or return to the ED. Clinical Impressions Clinical Impression: Influenza Instructions Patient Instructions: Influenza Print Language Print Language: Lao Discharge ED Provider: Nick Zimmer General Adult HPI General Chief complaint: Upper Respiratory Infection Stated complaint: fever body aches cough Time Seen by Provider: 10/04/24 14:46 Mode of Arrival: Ambulatory Source of Information: Patient Limitations: No Limitations Description of Symptoms (Recalled from ER Triage Doc. by RN): Fever, cough and vomiting since Sunday. History of Present Illness HPI narrative: This is a 43-year-old male who presents to the ED today for complaint of fever, vomiting, runny nose and cough since Sunday. He has had no diarrhea. He is unsure of what his fever has been. He says most of his vomiting yesterday included states phlegm. He says he is drinking plenty. Patient denies chest pain or shortness of breath. No other symptoms at this time. Related Data Previous Rx's ?Medication ?Instructions ?Recorded diclofenac sodium 75 mg 75 mg PO DAILY #30 tabs 08/28/24 tablet,delayed release albuterol sulfate 90 mcg/actuation 2 inh inhalation Q8H PRN shortness 10/04/24 aerosol inhaler of breath or wheezing #8.5 grams ondansetron HCl 4 mg tablet 4 mg PO Q8H PRN nausea and 10/04/24 vomiting 6 days #30 tabs promethazine-DM 6.25 mg-15 mg/5 mL 5 ml PO Q6H 7 days #140 mL 10/04/24 oral syrup Allergies Allergy/AdvReac Type Severity Reaction Status Date / Time No Known Allergies Allergy Verified 01/29/24 09:34 [facility] Disclaimer: The information contained in this section may have been updated after the patient was seen, as this information can be updated by other users. Medical History Ankle fracture, left surgery in 2007 Otitis media Abdominal discomfort Obesity Vitamin D deficiency Surgical History No significant past surgical history Family History Other No significant family history Social History (Updated 07/17/24 @ 21:07 by Pardeep Menjivar APRN) Smoking Status: Never smoker alcohol intake: current alcohol intake frequency: a few times a week current occupational status: employed Travel in the last 8 weeks: None Have you lived/traveled outside [place] in past 30 days?: No Contact w/someone who lives/traveled outside [place] past 30 days?: No Exposure to someone with infectious disease in past 14 days?: No Do you have a fever (greater than 100.4 F or 38 C)?: No Have you tested positive for COVID-19: No Exposed to someone with COVID-19 in past 14 days?: No Do you have a sore throat?: No Do you have a cough?: Yes Do you have any weakness?: No Do you have any diarrhea?: No Are you experiencing any unusual bleeding?: No Do you have any muscle aches/pain?: Yes Do you have any abdominal pain?: No Are you experiencing loss of taste or smell?: No Other Medical History Have you received the Pneumonia Vaccine: No ROS Obtained: Yes Systems reviewed as appropriate & no additional complaints except as documented Constitutional Constitutional: Reports as per HPI Physical Exam General General appearance: alert and in no apparent distress Head Head exam: atraumatic and normocephalic Eye Eye exam: Present PERRL and EOMI ENT ENT exam: Present normal exam and mucous membranes moist Neck Neck exam: Present normal inspection and full ROM Respiratory Respiratory exam: Present normal lung sounds bilaterally Cardiovascular Cardiovascular exam: Present regular rate, normal rhythm, normal heart sounds, +S1 and +S2 Abdominal Exam Abdominal exam: Present soft and normal bowel sounds Extremities Exam Extremities exam: Present full ROM and normal capillary refill Neurological Exam Neurological exam: Present alert and oriented X3 Skin Skin exam: Present warm, dry and intact Medical Decision Making Medical Records Screening: Per USPSTF and CDC recommendations, given the prevalence of disease in our region, it is our hospital?s policy to screen for HIV and viral Hepatitis for all patients aged 18 and over and those with ongoing risk factors. Fred Inquiry Pt receiving controlled substance: No Fred was queried for this patient: No Vital Signs: 10/04/24 14:22 10/04/24 15:00 10/04/24 15:54 Temperature 98.5 F 98.2 F Temperature Source Oral Oral Pulse Rate 78 75 Pulse Rate [Radial] 77 Respiratory Rate 16 18 Blood Pressure 118/75 134/82 Blood Pressure [Right Arm] 160/87 H Blood Pressure Mean [Right Arm] 111 Blood Pressure Source Automatic Cuff Blood Pressure Source [Right Arm] Automatic Cuff Blood Pressure Position Sitting Blood Pressure Position [Right Arm] Sitting 02 Sat by Pulse Oximetry 97 95 Oxygen Delivery Method Room Air Room Air Room Air Lab Data Lab Results 10/04/24 14:27: SARS-CoV-2 (PCR) Not detected, Influenza A Untype (PCR) Detected A, Influenza Type B (PCR) Not detected Orders (Tests/Meds): ORDERS Category Date Time Status Chest XR -- portable [XR chest portable] Stat Exams 10/04/24 14:55 Completed HIV Combo Stat Lab 10/04/24 14:26 Ordered Hepatitis C Ab Qual. W/ RFX Stat Lab 10/04/24 14:26 Ordered Rapid PCR Covid and Flu A/B Stat Lab 10/04/24 14:27 Completed Medical Decision Narrative: Insert review patient is a 43-year-old male presenting to the emergency department for evaluation of fever, vomiting, runny nose and cough since Sunday.. Patient is hemodynamically stable and nontoxic-appearing upon arrival, afebrile. Differential diagnosis includes flu, COVID or other viral illness among others. Workup will be conducted with flu swab and chest x-ray. Initial inventions include chest x-ray and flu swab. Initial workup reviewed by me flu was positive. Chest x-ray informally interpreted by me as no acute findings. Patient's symptoms viral so will be treated as viral. Patient cannot receive Tamiflu as symptoms are not within 2448 hrs. Patient stable for discharge Critical Care Critical Care Time Critical Care Time: No
--- NOTE | 2024-10-04 14:55 | XR_ITS ---
PROCEDURE INFORMATION: Exam: XR Chest Exam date and time: 10/04/2024 3:06 PM Age: 43 years old Clinical indication: Cough TECHNIQUE: Imaging protocol: Radiologic exam of the chest. Views: 1 view. COMPARISON: No relevant prior studies available. FINDINGS: Lungs: Unremarkable. No consolidation. Pleural spaces: Unremarkable. No pleural effusion. No pneumothorax. Heart/Mediastinum: Unremarkable. No cardiomegaly. Bones/joints: Unremarkable. IMPRESSION: No acute findings.
[2024-10-04 15:00] VITALS: BP 118/75; PULSE 78; O2SAT 95
[2024-10-04 15:22] LABS: Influenza A, PCR Detected (NotDetected)
[2024-10-04 15:54] VITALS: BP 134/82; PULSE 75; RESP 18; TEMP 36.8; O2SAT 98
== END 2024-10-04 15:56 | disposition home or self-care (01) ==
LOC: UTC 14:19 → ER 14:19
PROVIDERS: Emergency Medicine; Emergency Provider Emergency Medicine
DX: J11.1 Influenza due to unidentified influenza virus with other respiratory manifestations (principal); R50.9 Fever, unspecified; R05.9 Cough, unspecified; R11.10 Vomiting, unspecified
CPT/HCPCS: 71045; 87636; 99283

== ENCOUNTER 2024-10-26 10:13 | Outpatient (CLI) | payer OTHER, SELFPAY ==
[2024-10-26 21:00] LABS: Influenza A, PCR Not Detected (NotDetected); Influenza B, PCR Not Detected (NotDetected)
[2024-10-27 00:39] LABS: Coronavirus 19, PCR Detected (NotDetected)
== END 2024-10-26 23:59 | disposition home or self-care (01) ==
LOC: LAB.DROPOF 10-28 10:14
PROVIDERS: Visit Provider Nurse Practitioner
DX: R50.9 Fever, unspecified (principal); Z20.822 Contact with and (suspected) exposure to COVID-19
CPT/HCPCS: 87636

== ENCOUNTER 2025-01-27 21:16 | Emergency (ER) | payer OTHER, SELFPAY ==
[2025-01-27 21:26] VITALS: BP 139/90; PULSE 66; RESP 16; TEMP 37.2; O2SAT 99; BMI 35.4
--- NOTE | 2025-01-27 21:43 | ED_ITS ---
<Statement entered by Leonidas Herbert MD - 01/27/25 23:09> I was consulted by the KYLIE, and we discussed the complexity of the problems being addressed. I approved the treatment and management plan for this patient's care in the emergency department, thus performing a substantive portion of the medical decision making. Leonidas Herbert MD, CONRAD, FACEP Discharge Plan Disposition Patient Disposition: Home, Self-Care Condition: Good Prescriptions Prescriptions: New diclofenac sodium 75 mg tablet,delayed release (DR/EC) 75 mg PO BID Qty: 30 0RF No Action amoxicillin 875 mg tablet 875 mg PO BID 10 Days Qty: 20 0RF methylprednisolone [Medrol (Ender)] 4 mg tablets,dose pack See Rx Instructions PO PER PKG DIR Qty: 21 0RF Rx Instructions: PO PER PKG DIR for 6 days guaifenesin [Mucinex] 1,200 mg tablet extended release 12hr 1,200 mg PO BID PRN (Reason: congestion) Qty: 10 0RF diclofenac sodium 75 mg tablet,delayed release (DR/EC) 75 mg PO DAILY Qty: 30 0RF promethazine-DM 6.25-15 mg/5 mL syrup 5 ml PO Q6H 7 Days Qty: 140 0RF albuterol sulfate 90 mcg/actuation HFA aerosol inhaler 2 inh inhalation Q8H PRN (Reason: shortness of breath or wheezing) Qty: 8.5 0RF Referrals Follow up/Referrals: Derick Del Castillo DO [Staff Physician, Family Practice] - See instructions Provider,Referral, [Primary Care Provider, Medical] - See instructions Activity Restrictions/Add. Instructions Additional Instructions/Restrictions: I have sent a 2-week supply of diclofenac in to your pharmacy. You cannot take this medication long-term without having routine blood work to make sure that your kidney function is okay. As you do not currently have a primary care I have given you the name of Dr. Del Castillo who is excepting new patient here in [place]. You could call tomorrow to make an appointment. If you have any persistent new or worsening signs or symptoms please follow-up with Dr. Abundio Kraus or return to the ER as needed. Clinical Impressions Clinical Impression: Arthritis of ankle, left Print Language Print Language: Divehi Discharge ED Provider: Leonidas Herbert General Adult HPI General Chief complaint: PAIN Stated complaint: Left ankle pain,no injury Time Seen by Provider: 01/27/25 21:36 Mode of Arrival: Ambulatory Source of Information: Patient Description of Symptoms (Recalled from ER Triage Doc. by RN): Pt states he has known arthritis of left ankle pain worse today History of Present Illness HPI narrative: Patient presents for evaluation of left ankle pain. Patient has a longstanding history of previous ankle fracture that subsequently became arthritic. He has a longstanding history of ESTRELLA's and has been of value by orthopedics in the past. He has been offered ankle fusion but declined. Patient manages normally with diclofenac however patient reports that his PCP has left the area and has not yet established care with another 1 and he has been out of his diclofenac. He denies any fever recent pain or new injury. Related Data Previous Rx's ?Medication ?Instructions ?Recorded albuterol sulfate 90 mcg/actuation 2 inh inhalation Q8 H PRN shortness 10/04/24 aerosol inhaler of breath or wheezing #8.5 g kvng promethazine-DM 6.25 mg-15 mg/5 mL 5 ml PO Q6H 7 days #140 mL 10/04/24 oral syrup amoxicillin 875 mg tablet 875 mg PO BID 10 days #20 ta bs 10/26/24 diclofenac sodium 75 mg 75 mg PO DAILY #30 tabs /0 10/21 tablet,delayed release guaifenesin 1,200 mg tablet, 1,200 mg PO BID PRN conge stion #10 10/26/24 extended release 12 hr (Mucinex) tabs methylprednisolone 4 mg tablets in See Rx Instructions PO PER PKG DIR 10/26/24 a dose pack (Medrol (Ender)) #21 tabs diclofenac sodium 75 mg 75 mg PO BID #30 tabs tablet,delayed release Allergies Allergy/AdvReac Type Severity Reaction Status Date / Time No Known Allergies Allergy Verified 10/26/24 14:20 [facility] Disclaimer: The information contained in this section may have been updated after the patient was seen, as this information can be updated by other users. Medical History (Updated 01/27/25 @ 21:47 by YVON Reynolds) Otitis media Ankle fracture, left Otitis media Abdominal discomfort Obesity Vitamin D deficiency Surgical History No significant past surgical history Family History Other No significant family history Social History Smoking Status: Never smoker alcohol intake: current alcohol intake frequency: a few times a week current occupational status: employed Travel in the last 8 weeks?: None Have you lived/traveled outside [place] in past 30 days?: No Contact w/someone who lives/traveled outside US past 30 days?: No Exposure to someone with infectious disease in past 14 days?: No Do you have a fever (greater than 100.4 F or 38 C)?: No Have you tested positive for COVID-19?: No Exposed to someone with COVID-19 in past 14 days?: No Do you have a sore throat?: No Do you have a cough?: No Do you have any weakness?: No Do you have any diarrhea?: No Are you experiencing any unusual bleeding?: No Do you have any muscle aches/pain?: No Do you have any abdominal pain?: No Are you experiencing loss of taste or smell?: No Other Medical History Have you received the Pneumonia Vaccine: No ROS Obtained: Yes Systems reviewed as appropriate & no additional complaints except as documented Physical Exam General General appearance: alert and in no apparent distress Respiratory Respiratory exam: Present normal lung sounds bilaterally Cardiovascular Cardiovascular exam: Present regular rate Neurological Exam Neurological exam: Present alert and oriented X3 Medical Decision Making Medical Records Medical records reviewed: Yes I reviewed the patient's medical records. Screening: Per USPSTF and CDC recommendations, given the prevalence of disease in our region, it is our hospital?s policy to screen for HIV and viral Hepatitis for all patients aged 18 and over and those with ongoing risk factors. Fred Inquiry Pt receiving controlled substance: No Vital Signs: 01/27/25 21:26 Temperature 99.0 F Temperature Source Oral Pulse Rate [Right Brachial] 66 Respiratory Rate 16 Blood Pressure [Right Arm] 139/90 Blood Pressure Mean [Right Arm] 106 Blood Pressure Source [Right Arm] Automatic Cuff Blood Pressure Position [Right Arm] Sitting 02 Sat by Pulse Oximetry 99 Oxygen Delivery Method Room Air Orders (Tests/Meds): ORDERS Category Date Time Status HIV Combo Routine Lab 01/27/25 21:29 Ordered Hepatitis C Ab Qual. W/ RFX Routine Lab 01/27/25 21:29 Ordered Medical Decision Narrative: In summary patient is a 44-year-old male who presents to the emergency department for evaluation of left ankle pain and requesting medication refill. Patient is hemodynamically stable upon arrival, afebrile. Physical exam is remarkable for tenderness at the ankle both the bilateral malleoli with some slight joint edema but there is no erythema or induration. Patient has painful but full range of motion is neurovascular intact distally with good cap refill. Differential diagnosis includes arthritis versus joint effusion is fracture however patient has a very long history and he does not relate any concerning details to suggest other diagnosis is so they were not pursued. I had a shared decision-making discussion with the patient and offered labs and imaging to quantify and rule out any other possibilities however patient is confident that he does not have any new or changing symptoms other than being out of his diclofenac and via patient directed decision making has declined ESTRELLA if we are agreeable to refill his diclofenac. I then informed him I would do so it but because it has such high side effect profile that I would only do a 2-week course but I would also refer him to a primary care physician who could manage this going forward. Patient verbalized understanding agreement. Therefore patient will be discharged with a 2-week supply of diclofenac and referral to primary care. Critical Care Critical Care Time Critical Care Time: No
[2025-01-27 21:52] VITALS: BP 117/84; PULSE 75; RESP 16; TEMP 36.6; O2SAT 99
== END 2025-01-27 21:54 | disposition home or self-care (01) ==
PROVIDERS: Emergency Provider Student in an Organized Health Care Education/Training Program
DX: M19.072 Primary osteoarthritis, left ankle and foot (principal); E78.5 Hyperlipidemia, unspecified; E55.9 Vitamin D deficiency, unspecified
CPT/HCPCS: 99282

== ENCOUNTER 2025-06-11 10:01 | Outpatient (CLI) | payer OTHER, SELFPAY ==
--- NOTE | 2025-06-11 10:05 | XR_ITS ---
FINAL REPORT CLINICAL HISTORY: left ankle pain, arthritis - 6 months - cant stand COMPARISON: 09/19/2023 FINDINGS: AP, oblique, and lateral views of the left ankle were obtained. Postoperative changes from ORIF of the medial and lateral malleoli. Hardware is unchanged from the previous exam. On the lateral view, there is a new lucency through the anterior distal tibia. There may be a small amount of periosteal reaction and this is concerning for a healing fracture. There is bridging callus between the fibular and tibial shaft. 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 Joint space narrowing is worse compared to the prior exam. IMPRESSION: New lucency through the anterior tibia on the lateral view concerning for fracture. Postoperative and degenerative changes are similar to the prior study. Reviewed, Interpreted and Dictated by Radha Doll MD Transcribed by Jaida Uriarte Authenticated and . [facility]
--- NOTE | 2025-06-11 10:05 | XR_ITS ---
FINAL REPORT CLINICAL HISTORY: left foot pain, arthritis - 6 months - cant stand COMPARISON: 09/19/2023 FINDINGS: AP, oblique and lateral views of the left foot were obtained. As described on the ankle report, there is a new lucency through the anterior distal tibia. No other osseous abnormality identified. The joint spaces are preserved. Soft tissues are unremarkable. IMPRESSION: No acute osseous abnormality of the left foot. Reviewed, Interpreted and Dictated by Radha Doll MD Transcribed by Jaida Uriarte Authenticated and [facility]
--- OUTSIDE RECORDS SUMMARY | 2025-06-11 10:20 | XMS_ITS | Clinical Summary ---
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 Name Role Phone Unavailable Primary Care Provider Unavailabl e Allergies No known active allergies Medications No known medications Active Problems No known active problems Social History Tobacco Use Types Packs/Day Years Used Date Smoking Tobacco: Never Smokeless Tobacco: Current Chew Intimate Partner Violence Answer Date R ecorded Insults You Not on file 03/29/2021 Threatens You Not on file 03/29/2021 Screams at You Not on file 03/29/2021 Physically Hurt Not on file 03/29/2021 Intimate Partner Violence Score Not on file 03/29/2021 Stress Answer Date Recorded Stress in your Life Not on file 07/02/2024 Dealing with Stress 3 07/02/2024 Sex and Gender Information Value Date Recorded Sex Assigned at Not on file Legal Sex Male 6:52 PM CDT Gender Identity Not on file Sexual Orientation Not on file Last Filed Vital Signs Vital Sign Reading Time Taken Comments Blood Pressure 120/80 03/29/2021 5:51 PM EDT Pulse 83 03/29/2021 5:51 PM EDT Temperature 36.6 C (97.8 F) 03/29/2021 5:51 PM EDT Respiratory Rate - - Oxygen Saturation 97% 03/29/2021 5:51 PM EDT Inhaled Oxygen Concentration - - Weight 106 kg (234 lb 8 oz) 03/29/2021 5:51 PM E DT Height 172.7 cm (5' 8 ) 03/29/2021 5:51 PM EDT Body Mass Index 35.66 03/29/2021 5:51 PM EDT Plan of Treatment Health Maintenance Due Date Last Done Comments CT Colonography 1978 Colonoscopy 1978 Colorectal Cancer Screening Combo 1978 DNA Cologuard 1978 Dental Cleaning/Exam 1978 FIT or FOBT Test 1978 HIV Screening 1978 Hepatitis C Screening 1978 Sigmoidoscopy 1978 Hep B Infection Screening - Triple Screen 1996 Hepatitis B Immunization (1 of 3 - 19+ 3-dose series) 1997 Tetanus Diphtheria and Pertu ssis Immunization (1 - Tdap) 1997 Annual Preventive Exam 03/29/2022 03/29/2021 Covid-19 Immunization (1 - 2 25 season) 2025 Influenza Immunization (#1) 2025 HIB Immunization Aged Out No longer e ligible based on patient's age to complete this topic HPV Immunization Aged Out No longer e ligible based on patient's age to complete this topic Hepatitis A Immunization Aged Out No longer eligible based on patient's age to complete this topic Pneumococcal Immunization Aged Out No longer eligible based on patient's age to complete this topic Polio Immunization Aged Out No longer eligible based on patient's age to complete this topic Insurance OPT OUT NO COPAY NB
== END 2025-06-11 23:59 | disposition home or self-care (01) ==
LOC: RAD 10:02
PROVIDERS: PCP Nurse Practitioner Family; Visit Provider Physician Assistant Surgical
DX: M19.072 Primary osteoarthritis, left ankle and foot (principal); R93.6 Abnormal findings on diagnostic imaging of limbs; Z98.890 Other specified postprocedural states
CPT/HCPCS: 73610; 73630